=== PATIENT | female | born 1950 | race Caucasian/White ===

== ENCOUNTER 2019-07-04 22:40 | Observation (INO) ==
[2019-07-05] MEDS ORDERED: ORPHENADRINE 60 MG/2 ML VIAL IV STA (00:39)
[2019-07-05] MEDS ORDERED: hydrALAZINE 20 MG/1 ML VIAL IV STA (00:40)
[2019-07-05 01:08] LABS: Basophils % 0.2 % (0.0-0.8); Eosinophils # 0.3 10*3/uL (0.0-0.87); Eosinophils % 5.1 % (0.00-10.9); Hematocrit 34.5 VOL% (35.7-47.0); Hemoglobin 10.9 GM/DL (12.0-16.0); Immature Granulocytes % 0.3 %; Immature Granulocytes Absolute 0.02 #; Lymphocytes # 2.3 10*3/uL (1.4-4.0); Lymphocytes % 34.8 % (21.3-54.2); Mean Corpuscular HGB Conc 31.6 GM/DL (32-36); Mean Corpuscular Volume 94.5 FL (87-102); Mean Platelet Volume 10.8 FL (9.6-12.0); Monocytes % 11.1 % (1.7-12.7); Neutrophils % 48.5 % (38.7-73.9); Platelet Count 168 T/CUMM (130-400); Red Blood Count 3.65 MC/CUMM (3.8-5.5); Red Cell Distribution Width 13.7 % (9.3-17.3); White Blood Count 6.5 T/CUMM (4-12)
[2019-07-05 01:09] LABS: INR 0.9; PT Patient Result 10.2 SECS (9.6-12.2); Partial Thromboplastin Time 27.3 SECS (20.8-36.0)
[2019-07-05 01:19] LABS: Albumin 3.8 G/DL (3.4-5.0); Bilirubin,Total 0.4 MG/DL (0.2-1.0); Calcium 10.2 MG/DL (8.5-10.1); Osmolality,Calculated 278.5 MOS/KG (273-304); Total Protein 7.6 G/DL (6.4-8.3)
[2019-07-05] MEDS ORDERED: ACETAMINOPHEN 500 MG TABLET PO STA (03:05)
[2019-07-05] MEDS ORDERED: ACETAMINOPHEN 500 MG TABLET ONE (03:06)
[2019-07-05 03:21] LABS: Apearance,Urine CLEAR (Clear); Bilirubin,Urine Negative (Negative); Blood, Urine Negative (Negative); Glucose,Urine (UA) Negative (Negative); Ketones,Urine Negative (Negative); Nitrite,Urine Negative (Negative); Protein,Urine Negative; RBC,Urine 1 /HPF (0-4); Squamous Epithelial Cell,Urine Occasional /HPF (0-10); Urine Color Colorless (Yellow); Urine Specific Gravity 1.014 (1.001-1.035); Urine Urobilinogen < 2.0 EU/DL (0.2-1.0); WBC,Urine <1 /HPF (0-6)
[2019-07-05] MEDS ORDERED: ONDANSETRON 4 MG/2 ML VIAL IV PRN (03:44)
[2019-07-05] MEDS ORDERED: NICOTINE 21 MG/24 HR PATCH TRANSDERM PRN (03:44)
[2019-07-05] MEDS ORDERED: hydrALAZINE 20 MG/1 ML VIAL IV PRN (04:49)
[2019-07-05] MEDS: IBUPROFEN 600 MG TABLET PO PRN ×3 (08:27→23:46)
[2019-07-05] MEDS: PANTOPRAZOLE 40 MG TABLET PO SCH (08:27)
[2019-07-05] MEDS: hydrALAZINE 25 MG TABLET PO SCH (08:28)
[2019-07-05] MEDS: MAGNESIUM HYDROXIDE SUSP 30 ML UDCUP PO PRN (17:30)
[2019-07-06] MEDS: IBUPROFEN 600 MG TABLET PO PRN ×3 (06:47→23:04)
[2019-07-06] MEDS: hydrALAZINE 25 MG TABLET PO SCH (09:07)
[2019-07-06] MEDS: PANTOPRAZOLE 40 MG TABLET PO SCH (09:07)
[2019-07-06] MEDS: tiZANidine 4 MG TABLET PO SCH ×2 (14:22→21:18)
[2019-07-06] MEDS: MORPHINE 4 MG/1 ML VIAL IV PRN (17:12)
[2019-07-07] MEDS: MORPHINE 4 MG/1 ML VIAL IV PRN ×2 (03:25→09:21)
[2019-07-07] MEDS: PANTOPRAZOLE 40 MG TABLET PO SCH (08:18)
[2019-07-07] MEDS: hydrALAZINE 25 MG TABLET PO SCH (08:18)
[2019-07-07] MEDS: tiZANidine 4 MG TABLET PO SCH ×2 (08:18→14:27)
[2019-07-07] MEDS: IBUPROFEN 600 MG TABLET PO PRN ×2 (08:18→14:30)
[2019-07-07] MEDS ORDERED: busPIRone 15 MG TABLET PO SCH (09:00)
[2019-07-07] MEDS: MAGNESIUM HYDROXIDE SUSP 30 ML UDCUP PO PRN (11:08)
[2019-07-07 13:09] VITALS: BP 119/66
[2019-07-07] MEDS ORDERED: AMITRIPTYLINE 25 MG TABLET PO SCH (21:00)
== END 2019-07-07 15:44 | disposition home or self-care (01) ==
LOC: N.ED 22:40 → N.EDINP 22:40 → SUATTDRO 07-05 03:44 → N.5E 07-05 04:30
PROVIDERS: ADMIT Internal Medicine; ATTEND Internal Medicine Cardiovascular Disease

== ENCOUNTER 2021-10-02 18:40 | Observation (INO) ==
[2021-10-02] MEDS ORDERED: ONDANSETRON 4 MG/2 ML VIAL IV ONE (21:46)
[2021-10-02] MEDS ORDERED: ORPHENADRINE 60 MG/2 ML VIAL IV STA (21:46)
[2021-10-02] MEDS ORDERED: MORPHINE 2 MG/1 ML SYRINGE IV STA (21:46)
[2021-10-02 22:16] LABS: Basophils % 0.1 % (0.0-0.8); Eosinophils # 0.1 10*3/uL (0.0-0.87); Eosinophils % 1.9 % (0.00-10.9); Hematocrit 35.8 VOL% (35.7-47.0); Hemoglobin 11.2 GM/DL (12.0-16.0); Immature Granulocytes % 0.3 %; Immature Granulocytes Absolute 0.02 #; Lymphocytes % 29.4 % (21.3-54.2); Mean Corpuscular HGB Conc 31.3 GM/DL (32-36); Mean Corpuscular Volume 87.3 FL (87-102); Mean Platelet Volume 10.2 FL (9.6-12.0); Monocytes # 0.6 10*3/uL (0.11-0.8); Monocytes % 8.5 % (1.7-12.7); Neutrophils % 59.8 % (38.7-73.9); Platelet Count 220 T/CUMM (130-400)
[2021-10-02 22:34] LABS: Bacteria,Urine Many /HPF (Few); Hyaline Casts,Urine 1 /LPF (0-3); Mucus,Urine Occasional /LPF (Occasional); RBC,Urine 4 /HPF (0-4); Squamous Epithelial Cell,Urine Occasional /HPF (0-10)
[2021-10-02 22:35] LABS: Bilirubin,Urine Negative (Negative); Blood, Urine Negative (Negative); Glucose,Urine (UA) Negative (Negative); Ketones,Urine 15 mg/dL (Negative); Nitrite,Urine Positive (Negative); Protein,Urine 30 mg/dL (Negative); Urine Appearance Slightly Cloudy (Clear); Urine Color Yellow (Yellow); Urine Specific Gravity > 1.030 (1.001-1.035); Urine Urobilinogen 0.2 eU/dL (<2.0); Urine pH 5.5 (4.5-8.0)
[2021-10-02 22:40] LABS: Alanine Aminotransferase 33 U/L (13-56); Albumin 3.7 G/DL (3.4-5.0); Alkaline Phosphatase 102 U/L (45-117); Aspartate Amino Transferase 30 U/L (0-37); Bilirubin,Total < 0.39 MG/DL (0.20-1.00); Blood Urea Nitrogen 25 MG/DL (7-18); Calcium 11.1 MG/DL (8.5-10.1); Carbon Dioxide 27 MMOL/L (21-32); Chloride 108 MMOL/L (98-107); Estimated Glom Filtration Rate 39 ML/MIN; Glucose 91 MG/DL (74-106); Osmolality,Calculated 282.4 MOS/KG (273-304); Potassium 4.1 MMOL/L (3.5-5.1); Sodium 140 MMOL/L (136-145); Total Protein 8.2 G/DL (6.4-8.2)
[2021-10-02] MEDS ORDERED: cefTRIAXone 1,000 MG in SODIUM CHLORIDE 0.9% 100 ML IV STA (22:43)
[2021-10-02] MEDS ORDERED: ASPIRIN 325 MG TABLET PO STA (23:21)
[2021-10-02] MEDS ORDERED: NITROGLYCERIN SL 0.4 MG TABLET SL STA (23:21)
[2021-10-03] MEDS: ONDANSETRON 4 MG/2 ML VIAL IV PRN ×2 (03:12→13:32)
[2021-10-03] MEDS: ACETAMINOPHEN 325 MG TABLET PO PRN (03:12)
[2021-10-03 03:16] LABS: Basophils % 0.2 % (0.0-0.8); Eosinophils # 0.2 10*3/uL (0.0-0.87); Eosinophils % 3.7 % (0.00-10.9); Hematocrit 34.4 VOL% (35.7-47.0); Hemoglobin 10.6 GM/DL (12.0-16.0); Immature Granulocytes % 0.2 %; Immature Granulocytes Absolute 0.01 #; Lymphocytes # 2.1 10*3/uL (1.4-4.0); Lymphocytes % 34.1 % (21.3-54.2); Mean Corpuscular HGB Conc 30.8 GM/DL (32-36); Mean Corpuscular Volume 87.5 FL (87-102); Mean Platelet Volume 10.7 FL (9.6-12.0); Monocytes # 0.6 10*3/uL (0.11-0.8); Monocytes % 9.7 % (1.7-12.7); Neutrophils % 52.1 % (38.7-73.9); Platelet Count 186 T/CUMM (130-400); Red Blood Count 3.93 MC/CUMM (3.8-5.5); White Blood Count 6.2 T/CUMM (4-12)
[2021-10-03 03:38] LABS: Alanine Aminotransferase 29 U/L (13-56); Albumin 3.4 G/DL (3.4-5.0); Alkaline Phosphatase 95 U/L (45-117); Aspartate Amino Transferase 29 U/L (0-37); Bilirubin,Total < 0.39 MG/DL (0.20-1.00); Blood Urea Nitrogen 27 MG/DL (7-18); Calcium 10.4 MG/DL (8.5-10.1); Carbon Dioxide 28 MMOL/L (21-32); Chloride 109 MMOL/L (98-107); Estimated Glom Filtration Rate 39 ML/MIN; Glucose 87 MG/DL (74-106); Osmolality,Calculated 284.3 MOS/KG (273-304); Potassium 4.2 MMOL/L (3.5-5.1); Sodium 141 MMOL/L (136-145)
[2021-10-03] MEDS: GABAPENTIN 300 MG CAPSULE PO SCH ×2 (09:07→20:56)
[2021-10-03] MEDS: ASPIRIN 325 MG TABLET PO SCH (09:07)
[2021-10-03] MEDS: busPIRone 10 MG TABLET PO SCH ×2 (09:08→20:56)
[2021-10-03] MEDS: traMADol 50 MG TABLET PO PRN ×2 (09:08→14:53)
[2021-10-03] MEDS: PANTOPRAZOLE 40 MG TABLET PO SCH (09:09)
[2021-10-03] MEDS: SODIUM CHLORIDE 0.9% 1,000 ML IV SCH ×2 (09:44→20:16)
[2021-10-03] MEDS: ALBUTEROL/IPRATROPIUM 3 ML NEB RESP TX SCH ×2 (13:00→20:11)
[2021-10-03] MEDS ORDERED: BISACODYL 5 MG TABLET PO ONE (16:11)
[2021-10-03] MEDS: FLUoxetine 20 MG CAPSULE PO SCH (20:56)
[2021-10-03] MEDS: cefTRIAXone 1,000 MG in SODIUM CHLORIDE 0.9% 100 ML IV SCH (21:01)
[2021-10-03] MEDS: MAGNESIUM HYDROXIDE SUSP 30 ML UDCUP PO SCH (21:49)
[2021-10-04] MEDS: ALBUTEROL/IPRATROPIUM 3 ML NEB RESP TX SCH ×4 (00:20→18:45)
[2021-10-04 05:52] LABS: Calcium 10.1 MG/DL (8.5-10.1); Osmolality,Calculated 285.1 MOS/KG (273-304); Potassium 4.6 MMOL/L (3.5-5.1)
[2021-10-04] MEDS: MAGNESIUM HYDROXIDE SUSP 30 ML UDCUP PO SCH ×3 (06:03→23:54)
[2021-10-04] MEDS: SODIUM CHLORIDE 0.9% 1,000 ML IV SCH ×3 (06:03→20:36)
[2021-10-04] MEDS: ASPIRIN 325 MG TABLET PO SCH (08:27)
[2021-10-04] MEDS: BISACODYL 5 MG TABLET PO SCH ×2 (08:27→20:35)
[2021-10-04] MEDS: PANTOPRAZOLE 40 MG TABLET PO SCH (08:28)
[2021-10-04] MEDS: GABAPENTIN 300 MG CAPSULE PO SCH ×2 (08:28→20:35)
[2021-10-04] MEDS: busPIRone 10 MG TABLET PO SCH ×3 (08:28→20:36)
[2021-10-04] MEDS: traMADol 50 MG TABLET PO PRN ×2 (08:28→17:37)
[2021-10-04] MEDS: cloNIDine 0.1 MG TABLET PO PRN (10:52)
[2021-10-04] MEDS: ONDANSETRON 4 MG/2 ML VIAL IV PRN (13:21)
[2021-10-04] MEDS: FLUoxetine 20 MG CAPSULE PO SCH (20:36)
[2021-10-04] MEDS: ACETAMINOPHEN 325 MG TABLET PO PRN (20:36)
[2021-10-04] MEDS: cefTRIAXone 1,000 MG in SODIUM CHLORIDE 0.9% 100 ML IV SCH (21:31)
[2021-10-05] MEDS: ALBUTEROL/IPRATROPIUM 3 ML NEB RESP TX SCH ×4 (00:16→18:45)
[2021-10-05] MEDS: ONDANSETRON 4 MG/2 ML VIAL IV PRN ×3 (00:19→20:31)
[2021-10-05] MEDS: traMADol 50 MG TABLET PO PRN ×3 (04:21→16:30)
[2021-10-05 05:25] LABS: Basophils % 0.2 % (0.0-0.8); Eosinophils # 0.3 10*3/uL (0.0-0.87); Eosinophils % 5.3 % (0.00-10.9); Hematocrit 31.9 VOL% (35.7-47.0); Hemoglobin 9.6 GM/DL (12.0-16.0); Immature Granulocytes % 0.2 %; Immature Granulocytes Absolute 0.01 #; Lymphocytes # 1.6 10*3/uL (1.4-4.0); Lymphocytes % 27.6 % (21.3-54.2); Mean Corpuscular HGB Conc 30.1 GM/DL (32-36); Mean Corpuscular Volume 90.9 FL (87-102); Monocytes # 0.6 10*3/uL (0.11-0.8); Monocytes % 10.5 % (1.7-12.7); Neutrophils % 56.2 % (38.7-73.9); Platelet Count 171 T/CUMM (130-400); Red Blood Count 3.51 MC/CUMM (3.8-5.5); Red Cell Distribution Width 15.2 % (9.3-17.3); White Blood Count 5.8 T/CUMM (4-12)
[2021-10-05] MEDS: MAGNESIUM HYDROXIDE SUSP 30 ML UDCUP PO SCH ×3 (05:30→22:36)
[2021-10-05 05:41] LABS: Osmolality,Calculated 282.3 MOS/KG (273-304); Potassium 4.5 MMOL/L (3.5-5.1)
[2021-10-05] MEDS: SODIUM CHLORIDE 0.9% 1,000 ML IV SCH ×3 (08:35→20:00)
[2021-10-05] MEDS: BISACODYL 5 MG TABLET PO SCH ×2 (09:28→20:27)
[2021-10-05] MEDS: GABAPENTIN 300 MG CAPSULE PO SCH ×2 (09:28→20:27)
[2021-10-05] MEDS: busPIRone 10 MG TABLET PO SCH ×3 (09:28→20:27)
[2021-10-05] MEDS: ASPIRIN 325 MG TABLET PO SCH (09:28)
[2021-10-05] MEDS: PANTOPRAZOLE 40 MG TABLET PO SCH (09:28)
[2021-10-05] MEDS: cefTRIAXone 1,000 MG in SODIUM CHLORIDE 0.9% 100 ML IV SCH (20:23)
[2021-10-05] MEDS: FLUoxetine 20 MG CAPSULE PO SCH (20:31)
[2021-10-06] MEDS: ONDANSETRON 4 MG/2 ML VIAL IV PRN ×3 (01:28→20:31)
[2021-10-06] MEDS: ALBUTEROL/IPRATROPIUM 3 ML NEB RESP TX SCH ×4 (01:40→19:02)
[2021-10-06] MEDS: traMADol 50 MG TABLET PO PRN ×3 (04:41→14:28)
[2021-10-06] MEDS: MAGNESIUM HYDROXIDE SUSP 30 ML UDCUP PO SCH ×3 (06:47→21:07)
[2021-10-06] MEDS: SODIUM CHLORIDE 0.9% 1,000 ML IV SCH ×2 (07:35→17:42)
[2021-10-06] MEDS: ASPIRIN 325 MG TABLET PO SCH (09:19)
[2021-10-06] MEDS: GABAPENTIN 300 MG CAPSULE PO SCH ×2 (09:19→20:32)
[2021-10-06] MEDS: PANTOPRAZOLE 40 MG TABLET PO SCH (09:19)
[2021-10-06] MEDS: BISACODYL 5 MG TABLET PO SCH ×2 (09:19→20:31)
[2021-10-06] MEDS: busPIRone 10 MG TABLET PO SCH ×3 (09:19→20:32)
[2021-10-06] MEDS: carvediloL 3.125 MG TABLET PO SCH ×2 (10:40→20:32)
[2021-10-06] MEDS: FLUoxetine 20 MG CAPSULE PO SCH (20:32)
[2021-10-06] MEDS: cefTRIAXone 1,000 MG in SODIUM CHLORIDE 0.9% 100 ML IV SCH (20:32)
[2021-10-07] MEDS: ALBUTEROL/IPRATROPIUM 3 ML NEB RESP TX SCH ×4 (01:05→19:20)
[2021-10-07] MEDS: SODIUM CHLORIDE 0.9% 1,000 ML IV SCH ×2 (03:46→13:59)
[2021-10-07] MEDS: traMADol 50 MG TABLET PO PRN (03:51)
[2021-10-07 04:33] LABS: Basophils % 0.2 % (0.0-0.8); Eosinophils # 0.4 10*3/uL (0.0-0.87); Eosinophils % 5.8 % (0.00-10.9); Hematocrit 31.4 VOL% (35.7-47.0); Hemoglobin 9.6 GM/DL (12.0-16.0); Immature Granulocytes % 0.3 %; Immature Granulocytes Absolute 0.02 #; Lymphocytes # 1.5 10*3/uL (1.4-4.0); Lymphocytes % 24.8 % (21.3-54.2); Mean Corpuscular HGB Conc 30.6 GM/DL (32-36); Mean Platelet Volume 10.9 FL (9.6-12.0); Monocytes # 0.6 10*3/uL (0.11-0.8); Neutrophils % 59.9 % (38.7-73.9); Platelet Count 174 T/CUMM (130-400); Red Blood Count 3.53 MC/CUMM (3.8-5.5); White Blood Count 6.1 T/CUMM (4-12)
[2021-10-07] MEDS: MAGNESIUM HYDROXIDE SUSP 30 ML UDCUP PO SCH ×3 (05:59→22:25)
[2021-10-07] MEDS: carvediloL 6.25 MG TABLET PO SCH ×2 (09:06→20:43)
[2021-10-07] MEDS: GABAPENTIN 300 MG CAPSULE PO SCH ×2 (09:06→20:43)
[2021-10-07] MEDS: busPIRone 10 MG TABLET PO SCH ×3 (09:06→20:43)
[2021-10-07] MEDS: PANTOPRAZOLE 40 MG TABLET PO SCH (09:06)
[2021-10-07] MEDS: ASPIRIN 325 MG TABLET PO SCH (09:06)
[2021-10-07] MEDS: BISACODYL 5 MG TABLET PO SCH ×2 (09:09→20:44)
[2021-10-07] MEDS: tiZANidine 4 MG TABLET PO PRN ×2 (17:51→22:47)
[2021-10-07] MEDS: FLUoxetine 20 MG CAPSULE PO SCH (20:43)
[2021-10-07] MEDS: cefTRIAXone 1,000 MG in SODIUM CHLORIDE 0.9% 100 ML IV SCH (20:44)
[2021-10-08] MEDS: SODIUM CHLORIDE 0.9% 1,000 ML IV SCH ×3 (00:11→23:40)
[2021-10-08] MEDS: ALBUTEROL/IPRATROPIUM 3 ML NEB RESP TX SCH ×4 (01:39→19:47)
[2021-10-08] MEDS: traMADol 50 MG TABLET PO PRN ×3 (04:53→20:45)
[2021-10-08] MEDS: MAGNESIUM HYDROXIDE SUSP 30 ML UDCUP PO SCH ×3 (05:49→21:51)
[2021-10-08] MEDS: carvediloL 6.25 MG TABLET PO SCH (08:29)
[2021-10-08] MEDS: GABAPENTIN 300 MG CAPSULE PO SCH ×2 (08:29→20:46)
[2021-10-08] MEDS: PANTOPRAZOLE 40 MG TABLET PO SCH (08:29)
[2021-10-08] MEDS: BISACODYL 5 MG TABLET PO SCH ×2 (08:29→20:45)
[2021-10-08] MEDS: ASPIRIN 325 MG TABLET PO SCH (08:29)
[2021-10-08] MEDS: tiZANidine 4 MG TABLET PO PRN (08:29)
[2021-10-08] MEDS: busPIRone 10 MG TABLET PO SCH ×3 (08:29→20:45)
[2021-10-08] MEDS: ONDANSETRON 4 MG/2 ML VIAL IV PRN (16:26)
[2021-10-08] MEDS ORDERED: carvediloL 12.5 MG TABLET PO SCH (17:00)
[2021-10-08] MEDS: carvediloL 3.125 MG TABLET PO SCH (17:26)
[2021-10-08] MEDS: FLUoxetine 20 MG CAPSULE PO SCH (20:46)
[2021-10-08] MEDS: cefTRIAXone 1,000 MG in SODIUM CHLORIDE 0.9% 100 ML IV SCH (21:50)
[2021-10-09] MEDS: ALBUTEROL/IPRATROPIUM 3 ML NEB RESP TX SCH ×4 (00:07→19:00)
[2021-10-09] MEDS: cloNIDine 0.1 MG TABLET PO PRN (00:18)
[2021-10-09] MEDS: MAGNESIUM HYDROXIDE SUSP 30 ML UDCUP PO SCH ×3 (05:26→23:01)
[2021-10-09] MEDS: amLODIPine 5 MG TABLET PO SCH (10:23)
[2021-10-09] MEDS: busPIRone 10 MG TABLET PO SCH ×3 (10:23→23:01)
[2021-10-09] MEDS: GABAPENTIN 300 MG CAPSULE PO SCH ×2 (10:23→23:01)
[2021-10-09] MEDS: SODIUM CHLORIDE 0.9% 1,000 ML IV SCH ×2 (10:23→22:30)
[2021-10-09] MEDS: PANTOPRAZOLE 40 MG TABLET PO SCH (10:24)
[2021-10-09] MEDS: BISACODYL 5 MG TABLET PO SCH ×2 (10:24→23:01)
[2021-10-09] MEDS: carvediloL 3.125 MG TABLET PO SCH ×2 (10:24→17:13)
[2021-10-09] MEDS: ASPIRIN 325 MG TABLET PO SCH (10:24)
[2021-10-09] MEDS: FLUoxetine 20 MG CAPSULE PO SCH (23:01)
[2021-10-09] MEDS: cefTRIAXone 1,000 MG in SODIUM CHLORIDE 0.9% 100 ML IV SCH (23:01)
[2021-10-10] MEDS: traMADol 50 MG TABLET PO PRN ×2 (00:30→10:25)
[2021-10-10 04:52] LABS: Basophils % 0.2 % (0.0-0.8); Eosinophils # 0.3 10*3/uL (0.0-0.87); Eosinophils % 6.2 % (0.00-10.9); Hematocrit 29.6 VOL% (35.7-47.0); Immature Granulocytes % 0.4 %; Immature Granulocytes Absolute 0.02 #; Lymphocytes # 1.7 10*3/uL (1.4-4.0); Lymphocytes % 33.9 % (21.3-54.2); Mean Corpuscular HGB Conc 30.4 GM/DL (32-36); Mean Platelet Volume 11.8 FL (9.6-12.0); Monocytes # 0.6 10*3/uL (0.11-0.8); Monocytes % 10.9 % (1.7-12.7); Neutrophils % 48.4 % (38.7-73.9); Platelet Count 160 T/CUMM (130-400); Red Blood Count 3.29 MC/CUMM (3.8-5.5); White Blood Count 5.1 T/CUMM (4-12)
[2021-10-10 05:13] LABS: Calcium 9.6 MG/DL (8.5-10.1); Osmolality,Calculated 279.4 MOS/KG (273-304); Potassium 4.2 MMOL/L (3.5-5.1)
[2021-10-10] MEDS: MAGNESIUM HYDROXIDE SUSP 30 ML UDCUP PO SCH ×2 (05:21→15:19)
[2021-10-10] MEDS: ALBUTEROL/IPRATROPIUM 3 ML NEB RESP TX SCH ×4 (07:02→19:33)
[2021-10-10] MEDS: SODIUM CHLORIDE 0.9% 1,000 ML IV SCH ×3 (08:08→21:41)
[2021-10-10] MEDS: ASPIRIN 325 MG TABLET PO SCH (10:20)
[2021-10-10] MEDS: PANTOPRAZOLE 40 MG TABLET PO SCH (10:20)
[2021-10-10] MEDS: BISACODYL 5 MG TABLET PO SCH (10:20)
[2021-10-10] MEDS: GABAPENTIN 300 MG CAPSULE PO SCH ×2 (10:20→21:42)
[2021-10-10] MEDS: busPIRone 10 MG TABLET PO SCH ×3 (10:20→21:42)
[2021-10-10] MEDS: amLODIPine 5 MG TABLET PO SCH (10:21)
[2021-10-10] MEDS: carvediloL 3.125 MG TABLET PO SCH ×2 (10:21→17:52)
[2021-10-10] MEDS: ONDANSETRON 4 MG/2 ML VIAL IV PRN (11:12)
[2021-10-10] MEDS: cefTRIAXone 1,000 MG in SODIUM CHLORIDE 0.9% 100 ML IV SCH (21:40)
[2021-10-10] MEDS: FLUoxetine 20 MG CAPSULE PO SCH (21:42)
[2021-10-11] MEDS: ALBUTEROL/IPRATROPIUM 3 ML NEB RESP TX SCH ×4 (00:25→20:00)
[2021-10-11] MEDS: ONDANSETRON 4 MG/2 ML VIAL IV PRN (02:47)
[2021-10-11 05:38] LABS: Eosinophils # 0.3 10*3/uL (0.0-0.87); Eosinophils % 6.6 % (0.00-10.9); Hematocrit 31.3 VOL% (35.7-47.0); Hemoglobin 9.1 GM/DL (12.0-16.0); Immature Granulocytes % 0.2 %; Immature Granulocytes Absolute 0.01 #; Lymphocytes # 1.4 10*3/uL (1.4-4.0); Lymphocytes % 34.9 % (21.3-54.2); Mean Corpuscular HGB Conc 29.1 GM/DL (32-36); Mean Corpuscular Volume 90.7 FL (87-102); Mean Platelet Volume 12.2 FL (9.6-12.0); Monocytes # 0.5 10*3/uL (0.11-0.8); Neutrophils % 46.3 % (38.7-73.9); Platelet Count 169 T/CUMM (130-400); Red Blood Count 3.45 MC/CUMM (3.8-5.5); Red Cell Distribution Width 15.1 % (9.3-17.3); White Blood Count 4.1 T/CUMM (4-12)
[2021-10-11 06:06] LABS: Calcium 10.1 MG/DL (8.5-10.1); Osmolality,Calculated 280.3 MOS/KG (273-304); Potassium 3.8 MMOL/L (3.5-5.1)
[2021-10-11] MEDS: SODIUM CHLORIDE 0.9% 1,000 ML IV SCH (09:46)
[2021-10-11] MEDS: ASPIRIN 325 MG TABLET PO SCH (09:47)
[2021-10-11] MEDS: cloNIDine 0.1 MG TABLET PO PRN (09:47)
[2021-10-11] MEDS: PANTOPRAZOLE 40 MG TABLET PO SCH (09:47)
[2021-10-11] MEDS: busPIRone 10 MG TABLET PO SCH ×3 (09:47→20:59)
[2021-10-11] MEDS: GABAPENTIN 300 MG CAPSULE PO SCH ×2 (09:47→20:59)
[2021-10-11] MEDS: carvediloL 3.125 MG TABLET PO SCH ×2 (09:48→16:48)
[2021-10-11] MEDS: amLODIPine 5 MG TABLET PO SCH (09:48)
[2021-10-11] MEDS: FLUoxetine 20 MG CAPSULE PO SCH (20:59)
[2021-10-12] MEDS: ALBUTEROL/IPRATROPIUM 3 ML NEB RESP TX SCH ×4 (00:37→13:00)
[2021-10-12] MEDS: busPIRone 10 MG TABLET PO SCH ×3 (09:07→21:28)
[2021-10-12] MEDS: GABAPENTIN 300 MG CAPSULE PO SCH ×2 (09:07→21:28)
[2021-10-12] MEDS: amLODIPine 5 MG TABLET PO SCH (09:07)
[2021-10-12] MEDS: SODIUM CHLORIDE 0.9% 1,000 ML IV SCH ×2 (09:08→12:11)
[2021-10-12] MEDS: PANTOPRAZOLE 40 MG TABLET PO SCH (09:08)
[2021-10-12] MEDS: carvediloL 3.125 MG TABLET PO SCH ×2 (09:08→17:19)
[2021-10-12] MEDS: ASPIRIN 325 MG TABLET PO SCH (09:08)
[2021-10-12 14:37] LABS: Barbiturates Screen,Urine Negative (Negative); Benzodiazepines Screen,Urine Negative (Negative); Cannabinoid Screen,Urine Negative (Negative); Opiate Screen,Urine Negative (Negative); Phencyclidine Screen,Urine Negative (Negative)
[2021-10-12] MEDS: FLUoxetine 20 MG CAPSULE PO SCH (21:27)
[2021-10-13] MEDS: ALBUTEROL/IPRATROPIUM 3 ML NEB RESP TX SCH ×4 (00:10→19:11)
[2021-10-13] MEDS: GABAPENTIN 300 MG CAPSULE PO SCH ×2 (09:21→20:29)
[2021-10-13] MEDS: PANTOPRAZOLE 40 MG TABLET PO SCH (09:21)
[2021-10-13] MEDS: ASPIRIN 325 MG TABLET PO SCH (09:21)
[2021-10-13] MEDS: carvediloL 3.125 MG TABLET PO SCH ×2 (09:21→17:52)
[2021-10-13] MEDS: busPIRone 10 MG TABLET PO SCH ×3 (09:22→20:29)
[2021-10-13] MEDS: amLODIPine 10 MG TABLET PO SCH (09:22)
[2021-10-13] MEDS: ACETAMINOPHEN 325 MG TABLET PO PRN (09:22)
[2021-10-13] MEDS: cloNIDine 0.1 MG TABLET PO PRN ×2 (11:16→15:54)
[2021-10-13] MEDS: SODIUM CHLORIDE 0.9% 1,000 ML IV SCH ×2 (16:41→22:00)
[2021-10-13] MEDS: FLUoxetine 20 MG CAPSULE PO SCH (20:29)
[2021-10-13] MEDS ORDERED: DOCUSATE SODIUM 100 MG CAPSULE PO SCH (21:00)
[2021-10-14] MEDS: ALBUTEROL/IPRATROPIUM 3 ML NEB RESP TX SCH ×2 (00:26→07:05)
[2021-10-14] MEDS: GABAPENTIN 300 MG CAPSULE PO SCH (09:29)
[2021-10-14] MEDS: ASPIRIN 325 MG TABLET PO SCH (09:29)
[2021-10-14] MEDS: amLODIPine 10 MG TABLET PO SCH (09:30)
[2021-10-14] MEDS: busPIRone 10 MG TABLET PO SCH (09:30)
[2021-10-14] MEDS: carvediloL 3.125 MG TABLET PO SCH (09:30)
[2021-10-14] MEDS: PANTOPRAZOLE 40 MG TABLET PO SCH (09:32)
[2021-10-14 14:18] VITALS: BP 146/76
== END 2021-10-14 12:08 ==
LOC: N.EDINP 18:40 → N.ED 18:40 → N.TELES 10-03 00:28
PROVIDERS: ADMIT Internal Medicine; ATTEND Internal Medicine

== ENCOUNTER 2022-02-17 21:00 | Observation (INO) ==
[2022-02-17 21:38] LABS: Basophils % 0.2 % (0.0-0.8); Eosinophils # 0.2 10*3/uL (0.0-0.87); Hematocrit 30.6 VOL% (35.7-47.0); Hemoglobin 9.4 GM/DL (12.0-16.0); Immature Granulocytes % 0.2 %; Immature Granulocytes Absolute 0.01 #; Lymphocytes # 1.5 10*3/uL (1.4-4.0); Lymphocytes % 32.5 % (21.3-54.2); Mean Corpuscular HGB Conc 30.7 GM/DL (32-36); Mean Corpuscular Volume 91.6 FL (87-102); Mean Platelet Volume 11.3 FL (9.6-12.0); Monocytes # 0.5 10*3/uL (0.11-0.8); Monocytes % 10.8 % (1.7-12.7); Neutrophils % 52.3 % (38.7-73.9); Platelet Count 128 T/CUMM (130-400); Red Blood Count 3.34 MC/CUMM (3.8-5.5); Red Cell Distribution Width 14.4 % (9.3-17.3); White Blood Count 4.5 T/CUMM (4-12)
[2022-02-17] MEDS ORDERED: MORPHINE 2 MG/1 ML SYRINGE IV STA (21:40)
[2022-02-17] MEDS ORDERED: NITROGLYCERIN 2% OINT 1 INCH/GM PACK TOP STA (21:40)
[2022-02-17] MEDS ORDERED: ALBUTEROL/IPRATROPIUM 3 ML NEB RESP TX STA (21:40)
[2022-02-17] MEDS ORDERED: methylPREDNISolone SOD SUC 125 MG/2 ML VIAL IV STA (21:40)
[2022-02-17] MEDS ORDERED: FUROSEMIDE 40 MG/4 ML VIAL IV STA (21:40)
[2022-02-17] MEDS ORDERED: ONDANSETRON 4 MG/2 ML VIAL IV STA (21:40)
[2022-02-17 21:53] LABS: Alanine Aminotransferase 28 U/L (13-56); Albumin 3.2 G/DL (3.4-5.0); Alkaline Phosphatase 81 U/L (45-117); Aspartate Amino Transferase 26 U/L (0-37); Bilirubin,Total < 0.39 MG/DL (0.20-1.00); Blood Urea Nitrogen 20 MG/DL (7-18); Calcium 10.7 MG/DL (8.5-10.1); Carbon Dioxide 33 MMOL/L (21-32); Chloride 107 MMOL/L (98-107); Glucose 67 MG/DL (74-106); Osmolality,Calculated 281.3 MOS/KG (273-304); Potassium 3.9 MMOL/L (3.5-5.1); Sodium 141 MMOL/L (136-145); Total Protein 7.3 G/DL (6.4-8.2)
[2022-02-17] MEDS ORDERED: DEXTROSE 50% 25 GM/50 ML VIAL IV STA (23:24)
[2022-02-17] MEDS ORDERED: DEXTROSE 50% 25 GM/50 ML SYRINGE IV STA (23:28)
[2022-02-18] MEDS ORDERED: ENOXAPARIN 40 MG/0.4 ML SYRINGE SUBCUT STA (01:18)
[2022-02-18 02:03] LABS: Barbiturates Screen,Urine Negative (Negative); Benzodiazepines Screen,Urine Positive (Negative); Cannabinoid Screen,Urine Negative (Negative); Opiate Screen,Urine Negative (Negative); Phencyclidine Screen,Urine Negative (Negative)
[2022-02-18] MEDS ORDERED: ONDANSETRON 4 MG/2 ML VIAL IV PRN (03:45)
[2022-02-18] MEDS: SODIUM CHLORIDE 0.9% 1,000 ML IV SCH (04:08)
[2022-02-18 05:30] LABS: Eosinophils % 0.6 % (0.00-10.9); Hematocrit 33.8 VOL% (35.7-47.0); Hemoglobin 10.5 GM/DL (12.0-16.0); Immature Granulocytes % 0.3 %; Immature Granulocytes Absolute 0.01 #; Lymphocytes # 0.5 10*3/uL (1.4-4.0); Lymphocytes % 13.2 % (21.3-54.2); Mean Corpuscular HGB Conc 31.1 GM/DL (32-36); Mean Corpuscular Volume 92.1 FL (87-102); Mean Platelet Volume 11.8 FL (9.6-12.0); Monocytes % 0.6 % (1.7-12.7); Neutrophils % 85.3 % (38.7-73.9); Platelet Count 138 T/CUMM (130-400); Red Blood Count 3.67 MC/CUMM (3.8-5.5); Red Cell Distribution Width 14.5 % (9.3-17.3); White Blood Count 3.6 T/CUMM (4-12)
[2022-02-18 05:55] LABS: Alanine Aminotransferase 31 U/L (13-56); Albumin 3.4 G/DL (3.4-5.0); Alkaline Phosphatase 88 U/L (45-117); Aspartate Amino Transferase 27 U/L (0-37); Bilirubin,Total < 0.39 MG/DL (0.20-1.00); Blood Urea Nitrogen 25 MG/DL (7-18); Calcium 10.3 MG/DL (8.5-10.1); Carbon Dioxide 29 MMOL/L (21-32); Chloride 102 MMOL/L (98-107); Cholesterol 187 MG/DL (50-200); Glucose 253 MG/DL (74-106); HDL Cholesterol 71 MG/DL (40-60); Osmolality,Calculated 287.7 MOS/KG (273-304); Potassium 4.1 MMOL/L (3.5-5.1); Risk Ratio 2.63; Sodium 138 MMOL/L (136-145); Total Protein 7.6 G/DL (6.4-8.2); Triglycerides 52 MG/DL (2-150); VLDL Cholesterol 10.4 MG/DL
[2022-02-18] MEDS: ACETAMINOPHEN 325 MG TABLET PO PRN (09:25)
[2022-02-18] MEDS: DOCUSATE SODIUM 100 MG CAPSULE PO SCH ×2 (09:27→21:45)
[2022-02-18] MEDS: PANTOPRAZOLE 40 MG VIAL IV SCH (09:28)
[2022-02-18] MEDS ORDERED: tiZANidine 4 MG TABLET PO PRN (14:43)
[2022-02-18] MEDS ORDERED: ENOXAPARIN 40 MG/0.4 ML SYRINGE SUBCUT SCH (15:00)
[2022-02-18] MEDS: ALBUTEROL/IPRATROPIUM 3 ML NEB RESP TX SCH (19:08)
[2022-02-18] MEDS: busPIRone 10 MG TABLET PO SCH (21:45)
[2022-02-18] MEDS: GABAPENTIN 300 MG CAPSULE PO SCH (21:46)
[2022-02-18] MEDS: ATORVASTATIN 40 MG TABLET PO SCH (21:46)
[2022-02-18] MEDS: NON-FORMULARY MEDICATION (Buprenorphine-Naloxone 8-2 mg film) BUCCAL SCH (21:46)
[2022-02-19] MEDS: ALBUTEROL/IPRATROPIUM 3 ML NEB RESP TX SCH ×3 (00:28→19:20)
[2022-02-19] MEDS: SODIUM CHLORIDE 0.9% 1,000 ML IV SCH (04:01)
[2022-02-19] MEDS: DOCUSATE SODIUM 100 MG CAPSULE PO SCH ×2 (08:54→20:55)
[2022-02-19] MEDS: ISOSORBIDE MONONITRATE 30 MG TABLET PO SCH (08:54)
[2022-02-19] MEDS: ASPIRIN EC 81 MG TABLET PO SCH (08:54)
[2022-02-19] MEDS: FUROSEMIDE 20 MG TABLET PO SCH (08:54)
[2022-02-19] MEDS: busPIRone 10 MG TABLET PO SCH ×2 (08:54→20:55)
[2022-02-19] MEDS: NON-FORMULARY MEDICATION (Buprenorphine-Naloxone 8-2 mg film) BUCCAL SCH ×2 (08:56→21:43)
[2022-02-19] MEDS: PANTOPRAZOLE 40 MG VIAL IV SCH (08:56)
[2022-02-19] MEDS: FLUoxetine 20 MG CAPSULE PO SCH (15:34)
[2022-02-19] MEDS: ATORVASTATIN 40 MG TABLET PO SCH (20:54)
[2022-02-19] MEDS: ACETAMINOPHEN 325 MG TABLET PO PRN (20:54)
[2022-02-19] MEDS: GABAPENTIN 300 MG CAPSULE PO SCH (20:55)
[2022-02-20] MEDS: ALBUTEROL/IPRATROPIUM 3 ML NEB RESP TX SCH ×3 (00:57→06:55)
[2022-02-20] MEDS: SODIUM CHLORIDE 0.9% 1,000 ML IV SCH (03:04)
[2022-02-20] MEDS: ACETAMINOPHEN 325 MG TABLET PO PRN (04:22)
[2022-02-20] MEDS: ISOSORBIDE MONONITRATE 30 MG TABLET PO SCH (08:22)
[2022-02-20] MEDS: ASPIRIN EC 81 MG TABLET PO SCH (08:23)
[2022-02-20] MEDS: FUROSEMIDE 20 MG TABLET PO SCH (08:23)
[2022-02-20] MEDS: DOCUSATE SODIUM 100 MG CAPSULE PO SCH (08:23)
[2022-02-20] MEDS: FLUoxetine 20 MG CAPSULE PO SCH (08:32)
[2022-02-20] MEDS: busPIRone 10 MG TABLET PO SCH (08:32)
[2022-02-20 09:57] VITALS: BP 128/71
[2022-02-20] MEDS ORDERED: PANTOPRAZOLE 40 MG TABLET PO ONE (09:57)
[2022-02-20] MEDS: NON-FORMULARY MEDICATION (Buprenorphine-Naloxone 8-2 mg film) BUCCAL SCH (10:02)
== END 2022-02-20 11:20 | disposition home or self-care (01) ==
LOC: EDUNIT# → EDBD → N.EDINP 21:00 → N.ED 21:00 → N.EDINP 02-18 03:22 → N.TELEN 02-18 03:43
PROVIDERS: ADMIT Internal Medicine; ATTEND Internal Medicine

== ENCOUNTER 2022-06-25 15:42 | Observation (INO) ==
[2022-06-25 17:04] LABS: Eosinophils # 0.1 10*3/uL (0.0-0.87); Eosinophils % 2.4 % (0.00-10.9); Hematocrit 30.9 VOL% (35.7-47.0); Hemoglobin 10.1 GM/DL (12.0-16.0); Immature Granulocytes % 0.5 %; Immature Granulocytes Absolute 0.03 #; Lymphocytes # 0.6 10*3/uL (1.4-4.0); Lymphocytes % 9.4 % (21.3-54.2); Mean Corpuscular HGB Conc 32.7 GM/DL (32-36); Mean Corpuscular Volume 88.8 FL (87-102); Mean Platelet Volume 10.7 FL (9.6-12.0); Monocytes # 0.3 10*3/uL (0.11-0.8); Monocytes % 5.5 % (1.7-12.7); Neutrophils % 82.2 % (38.7-73.9); Platelet Count 176 T/CUMM (130-400); Red Blood Count 3.48 MC/CUMM (3.8-5.5); Red Cell Distribution Width 14.1 % (9.3-17.3); White Blood Count 5.8 T/CUMM (4-12)
[2022-06-25 17:16] LABS: Bilirubin,Total 0.4 MG/DL (0.20-1.00); Calcium 10.1 MG/DL (8.5-10.1); Osmolality,Calculated 279.5 MOS/KG (273-304); Potassium 3.7 MMOL/L (3.5-5.1); Total Protein 6.8 G/DL (6.4-8.2)
[2022-06-25] MEDS ORDERED: ONDANSETRON 4 MG/2 ML VIAL IV STA (19:50)
[2022-06-25] MEDS ORDERED: ENOXAPARIN 30 MG/0.3 ML SYRINGE SUBCUT STA (20:27)
[2022-06-25] MEDS ORDERED: ACETAMINOPHEN 325 MG TABLET PO ONE (20:53)
[2022-06-25] MEDS: SODIUM CHLORIDE 0.9% 1,000 ML IV SCH (23:48)
[2022-06-25] MEDS: DOCUSATE SODIUM 100 MG CAPSULE PO SCH (23:48)
[2022-06-26] MEDS: ONDANSETRON 4 MG/2 ML VIAL IV PRN ×2 (03:29→12:28)
[2022-06-26] MEDS ORDERED: PANTOPRAZOLE 40 MG TABLET PO SCH (09:00)
[2022-06-26] MEDS ORDERED: ENOXAPARIN 60 MG/0.6 ML SYRINGE SUBCUT SCH (09:00)
[2022-06-26] MEDS: SODIUM CHLORIDE 0.9% 1,000 ML IV SCH ×3 (09:13→22:48)
[2022-06-26] MEDS: DOCUSATE SODIUM 100 MG CAPSULE PO SCH ×2 (09:13→21:50)
[2022-06-26] MEDS ORDERED: MAGNESIUM SULF RIDER 2 GM/50 ML PREMIX IV ONE (11:30)
[2022-06-26] MEDS ORDERED: ONDANSETRON ODT 4 MG TABLET PO PRN (11:31)
[2022-06-26] MEDS ORDERED: ALBUTEROL/IPRATROPIUM 3 ML NEB RESP TX PRN (11:31)
[2022-06-26] MEDS ORDERED: LOPERAMIDE 2 MG CAPSULE PO PRN (11:31)
[2022-06-26] MEDS: hydrOXYzine HCL 25 MG TABLET PO PRN ×2 (12:18→21:51)
[2022-06-26] MEDS: GABAPENTIN 600 MG TABLET PO SCH ×2 (12:21→21:50)
[2022-06-26] MEDS: busPIRone 10 MG TABLET PO SCH ×2 (12:22→21:50)
[2022-06-26] MEDS: FLUoxetine 20 MG CAPSULE PO SCH (12:22)
[2022-06-26] MEDS: traMADol 50 MG TABLET PO SCH ×2 (16:01→21:50)
[2022-06-26] MEDS: tiZANidine 4 MG TABLET PO PRN (17:24)
[2022-06-26] MEDS: ALBUTEROL/IPRATROPIUM 3 ML NEB RESP TX SCH (19:40)
[2022-06-26] MEDS: APIXABAN 5 MG TABLET PO SCH (21:50)
[2022-06-26] MEDS: PANTOPRAZOLE 40 MG TABLET PO SCH (21:50)
[2022-06-27] MEDS: ALBUTEROL/IPRATROPIUM 3 ML NEB RESP TX SCH ×4 (00:28→19:15)
[2022-06-27] MEDS: hydrOXYzine HCL 25 MG TABLET PO PRN (02:37)
[2022-06-27 05:59] LABS: Calcium 9.6 MG/DL (8.5-10.1); Osmolality,Calculated 280.4 MOS/KG (273-304); Potassium 4.1 MMOL/L (3.5-5.1)
[2022-06-27] MEDS: GABAPENTIN 600 MG TABLET PO SCH ×2 (08:50→21:26)
[2022-06-27] MEDS: APIXABAN 5 MG TABLET PO SCH ×2 (08:50→21:25)
[2022-06-27] MEDS: PANTOPRAZOLE 40 MG TABLET PO SCH ×2 (08:50→21:26)
[2022-06-27] MEDS: DOCUSATE SODIUM 100 MG CAPSULE PO SCH ×2 (08:50→21:25)
[2022-06-27] MEDS: FLUoxetine 20 MG CAPSULE PO SCH (08:51)
[2022-06-27] MEDS: busPIRone 10 MG TABLET PO SCH ×2 (08:51→21:25)
[2022-06-27] MEDS: FERROUS SULFATE 325 MG TABLET PO SCH ×2 (08:51→21:25)
[2022-06-27] MEDS: traMADol 50 MG TABLET PO SCH ×3 (08:51→21:25)
[2022-06-27] MEDS: SODIUM CHLORIDE 0.9% 1,000 ML IV SCH ×3 (08:57→21:24)
[2022-06-27] MEDS: tiZANidine 4 MG TABLET PO PRN (16:31)
[2022-06-27] MEDS: ONDANSETRON 4 MG/2 ML VIAL IV PRN (23:21)
[2022-06-28] MEDS: ALBUTEROL/IPRATROPIUM 3 ML NEB RESP TX SCH ×4 (01:25→18:57)
[2022-06-28] MEDS: ACETAMINOPHEN 325 MG TABLET PO PRN (03:52)
[2022-06-28 05:10] LABS: Calcium 9.1 MG/DL (8.5-10.1); Osmolality,Calculated 282.1 MOS/KG (273-304); Potassium 3.9 MMOL/L (3.5-5.1)
[2022-06-28] MEDS: SODIUM CHLORIDE 0.9% 1,000 ML IV SCH ×2 (06:53→17:04)
[2022-06-28] MEDS: DOCUSATE SODIUM 100 MG CAPSULE PO SCH ×2 (09:28→20:49)
[2022-06-28] MEDS: APIXABAN 5 MG TABLET PO SCH ×2 (09:29→20:49)
[2022-06-28] MEDS: traMADol 50 MG TABLET PO SCH ×3 (09:29→20:48)
[2022-06-28] MEDS: PANTOPRAZOLE 40 MG TABLET PO SCH ×2 (09:29→20:49)
[2022-06-28] MEDS: GABAPENTIN 600 MG TABLET PO SCH ×2 (09:29→20:49)
[2022-06-28] MEDS: FERROUS SULFATE 325 MG TABLET PO SCH ×2 (09:29→20:49)
[2022-06-28] MEDS: FLUoxetine 20 MG CAPSULE PO SCH (09:29)
[2022-06-28] MEDS: busPIRone 10 MG TABLET PO SCH ×2 (09:29→20:48)
[2022-06-28] MEDS: MAGNESIUM CHLORIDE 64 MG TABLET PO SCH ×2 (09:36→20:49)
[2022-06-28] MEDS ORDERED: MAGNESIUM HYDROXIDE SUSP 30 ML UDCUP PO ONE (11:21)
[2022-06-28] MEDS ORDERED: SODIUM PHOSPHATE ENEMA 133 ML BOTTLE RECTAL ONE (11:21)
[2022-06-28 11:25] LABS: Eosinophils # 0.3 10*3/uL (0.0-0.87); Eosinophils % 6.8 % (0.00-10.9); Hematocrit 27.4 VOL% (35.7-47.0); Hemoglobin 8.6 GM/DL (12.0-16.0); Immature Granulocytes % 0.2 %; Immature Granulocytes Absolute 0.01 #; Lymphocytes # 1.1 10*3/uL (1.4-4.0); Lymphocytes % 24.9 % (21.3-54.2); Mean Corpuscular HGB Conc 31.4 GM/DL (32-36); Mean Corpuscular Volume 92.3 FL (87-102); Mean Platelet Volume 11.4 FL (9.6-12.0); Monocytes # 0.6 10*3/uL (0.11-0.8); Monocytes % 12.5 % (1.7-12.7); Neutrophils % 55.6 % (38.7-73.9); Platelet Count 163 T/CUMM (130-400); Red Blood Count 2.97 MC/CUMM (3.8-5.5); Red Cell Distribution Width 14.5 % (9.3-17.3); White Blood Count 4.4 T/CUMM (4-12)
[2022-06-28] MEDS: ONDANSETRON 4 MG/2 ML VIAL IV PRN (15:28)
[2022-06-28] MEDS: SUBOXONE PO SCH (22:34)
[2022-06-29] MEDS ORDERED: ALBUTEROL/IPRATROPIUM 3 ML NEB RESP TX ONE (00:08)
[2022-06-29] MEDS: ALBUTEROL/IPRATROPIUM 3 ML NEB RESP TX SCH ×4 (00:20→19:35)
[2022-06-29] MEDS: ACETAMINOPHEN 325 MG TABLET PO PRN (01:39)
[2022-06-29 06:03] LABS: Calcium 9.8 MG/DL (8.5-10.1); Osmolality,Calculated 284.1 MOS/KG (273-304); Potassium 3.8 MMOL/L (3.5-5.1)
[2022-06-29] MEDS: ONDANSETRON 4 MG/2 ML VIAL IV PRN (08:57)
[2022-06-29] MEDS: busPIRone 10 MG TABLET PO SCH ×2 (09:29→21:32)
[2022-06-29] MEDS: PANTOPRAZOLE 40 MG TABLET PO SCH ×2 (09:29→21:33)
[2022-06-29] MEDS: GABAPENTIN 600 MG TABLET PO SCH ×2 (09:29→21:32)
[2022-06-29] MEDS: FLUoxetine 20 MG CAPSULE PO SCH (09:30)
[2022-06-29] MEDS: MAGNESIUM CHLORIDE 64 MG TABLET PO SCH ×2 (09:30→21:32)
[2022-06-29] MEDS: DOCUSATE SODIUM 100 MG CAPSULE PO SCH ×2 (09:30→21:32)
[2022-06-29] MEDS: APIXABAN 5 MG TABLET PO SCH ×2 (09:30→21:33)
[2022-06-29] MEDS: FERROUS SULFATE 325 MG TABLET PO SCH ×2 (09:30→21:33)
[2022-06-29] MEDS: traMADol 50 MG TABLET PO SCH ×2 (09:34→14:37)
[2022-06-29] MEDS: tiZANidine 4 MG TABLET PO PRN (12:10)
[2022-06-29] MEDS ORDERED: LORATADINE 10 MG TABLET PO ONE (14:09)
[2022-06-29] MEDS: BISACODYL 5 MG TABLET PO SCH (14:37)
[2022-06-29] MEDS: SODIUM CHLORIDE 0.9% 1,000 ML IV SCH (15:08)
[2022-06-29] MEDS: hydrOXYzine HCL 25 MG TABLET PO PRN (21:33)
[2022-06-29] MEDS: AMITRIPTYLINE 25 MG TABLET PO SCH (21:33)
[2022-06-29] MEDS: SUBOXONE PO SCH (23:52)
[2022-06-30] MEDS: ALBUTEROL/IPRATROPIUM 3 ML NEB RESP TX SCH ×4 (00:16→20:08)
[2022-06-30 05:25] LABS: Basophils % 0.2 % (0.0-0.8); Eosinophils # 0.3 10*3/uL (0.0-0.87); Eosinophils % 6.6 % (0.00-10.9); Hematocrit 26.9 VOL% (35.7-47.0); Hemoglobin 8.3 GM/DL (12.0-16.0); Immature Granulocytes % 0.2 %; Immature Granulocytes Absolute 0.01 #; Lymphocytes # 1.2 10*3/uL (1.4-4.0); Lymphocytes % 25.2 % (21.3-54.2); Mean Corpuscular HGB Conc 30.9 GM/DL (32-36); Mean Corpuscular Volume 93.4 FL (87-102); Mean Platelet Volume 10.8 FL (9.6-12.0); Monocytes # 0.5 10*3/uL (0.11-0.8); Monocytes % 11.5 % (1.7-12.7); Neutrophils % 56.3 % (38.7-73.9); Platelet Count 167 T/CUMM (130-400); Red Blood Count 2.88 MC/CUMM (3.8-5.5); Red Cell Distribution Width 14.5 % (9.3-17.3); White Blood Count 4.7 T/CUMM (4-12)
[2022-06-30 06:03] LABS: Alanine Aminotransferase 15 U/L (13-56); Albumin 2.5 G/DL (3.4-5.0); Alkaline Phosphatase 55 U/L (45-117); Aspartate Amino Transferase 17 U/L (0-37); Bilirubin,Total < 0.39 MG/DL (0.20-1.00); Blood Urea Nitrogen 16 MG/DL (7-18); Carbon Dioxide 26 MMOL/L (21-32); Chloride 109 MMOL/L (98-107); Glucose 84 MG/DL (74-106); Osmolality,Calculated 274.7 MOS/KG (273-304); Sodium 138 MMOL/L (136-145)
[2022-06-30] MEDS: SODIUM CHLORIDE 0.9% 1,000 ML IV SCH (09:39)
[2022-06-30] MEDS: MAGNESIUM CHLORIDE 64 MG TABLET PO SCH ×2 (09:48→21:11)
[2022-06-30] MEDS: BISACODYL 5 MG TABLET PO SCH (09:48)
[2022-06-30] MEDS: DOCUSATE SODIUM 100 MG CAPSULE PO SCH ×2 (09:48→21:11)
[2022-06-30] MEDS: GABAPENTIN 600 MG TABLET PO SCH ×2 (09:49→21:11)
[2022-06-30] MEDS: LORATADINE 10 MG TABLET PO SCH (09:49)
[2022-06-30] MEDS: traMADol 50 MG TABLET PO PRN (09:49)
[2022-06-30] MEDS: tiZANidine 4 MG TABLET PO PRN (09:50)
[2022-06-30] MEDS: busPIRone 10 MG TABLET PO SCH ×2 (09:50→21:11)
[2022-06-30] MEDS: FLUoxetine 20 MG CAPSULE PO SCH (09:50)
[2022-06-30] MEDS: PANTOPRAZOLE 40 MG TABLET PO SCH ×2 (09:50→21:11)
[2022-06-30] MEDS: APIXABAN 5 MG TABLET PO SCH ×2 (09:50→21:11)
[2022-06-30] MEDS: FERROUS SULFATE 325 MG TABLET PO SCH ×2 (09:53→21:11)
[2022-06-30] MEDS: AMITRIPTYLINE 25 MG TABLET PO SCH (21:12)
[2022-06-30] MEDS: SUBOXONE PO SCH (21:13)
[2022-07-01] MEDS: ALBUTEROL/IPRATROPIUM 3 ML NEB RESP TX SCH ×4 (01:05→20:00)
[2022-07-01] MEDS: traMADol 50 MG TABLET PO PRN ×2 (01:14→13:52)
[2022-07-01] MEDS: SODIUM CHLORIDE 0.9% 1,000 ML IV SCH (05:08)
[2022-07-01] MEDS: LORATADINE 10 MG TABLET PO SCH (09:42)
[2022-07-01] MEDS: busPIRone 10 MG TABLET PO SCH ×2 (09:42→20:50)
[2022-07-01] MEDS: DOCUSATE SODIUM 100 MG CAPSULE PO SCH ×2 (09:42→20:49)
[2022-07-01] MEDS: APIXABAN 5 MG TABLET PO SCH ×2 (09:42→20:49)
[2022-07-01] MEDS: FERROUS SULFATE 325 MG TABLET PO SCH ×2 (09:42→20:50)
[2022-07-01] MEDS: BISACODYL 5 MG TABLET PO SCH (09:42)
[2022-07-01] MEDS: GABAPENTIN 600 MG TABLET PO SCH ×2 (09:43→20:50)
[2022-07-01] MEDS: PANTOPRAZOLE 40 MG TABLET PO SCH ×2 (09:43→20:50)
[2022-07-01] MEDS: MAGNESIUM CHLORIDE 64 MG TABLET PO SCH ×2 (09:44→20:50)
[2022-07-01] MEDS: FLUoxetine 20 MG CAPSULE PO SCH (09:50)
[2022-07-01 10:39] LABS: Eosinophils # 0.3 10*3/uL (0.0-0.87); Eosinophils % 6.1 % (0.00-10.9); Hematocrit 28.8 VOL% (35.7-47.0); Hemoglobin 9.1 GM/DL (12.0-16.0); Immature Granulocytes % 0.4 %; Immature Granulocytes Absolute 0.02 #; Lymphocytes % 19.4 % (21.3-54.2); Mean Corpuscular HGB Conc 31.6 GM/DL (32-36); Mean Corpuscular Volume 90.6 FL (87-102); Mean Platelet Volume 10.3 FL (9.6-12.0); Monocytes # 0.6 10*3/uL (0.11-0.8); Monocytes % 11.9 % (1.7-12.7); Neutrophils % 62.2 % (38.7-73.9); Platelet Count 190 T/CUMM (130-400); Red Blood Count 3.18 MC/CUMM (3.8-5.5); Red Cell Distribution Width 14.6 % (9.3-17.3); White Blood Count 5.4 T/CUMM (4-12)
[2022-07-01 10:54] LABS: Calcium 10.1 MG/DL (8.5-10.1); Osmolality,Calculated 279.4 MOS/KG (273-304); Potassium 3.8 MMOL/L (3.5-5.1)
[2022-07-01] MEDS: cloNIDine 0.1 MG TABLET PO SCH ×2 (13:52→20:49)
[2022-07-01] MEDS: ONDANSETRON 4 MG/2 ML VIAL IV PRN (19:10)
[2022-07-01] MEDS: AMITRIPTYLINE 25 MG TABLET PO SCH (20:50)
[2022-07-01] MEDS: SUBOXONE PO SCH (20:50)
[2022-07-01] MEDS: tiZANidine 4 MG TABLET PO PRN (21:03)
[2022-07-02] MEDS: ALBUTEROL/IPRATROPIUM 3 ML NEB RESP TX SCH ×4 (01:45→19:35)
[2022-07-02] MEDS: SODIUM CHLORIDE 0.9% 1,000 ML IV SCH ×2 (02:21→08:45)
[2022-07-02 05:57] LABS: Eosinophils # 0.4 10*3/uL (0.0-0.87); Eosinophils % 8.4 % (0.00-10.9); Hematocrit 28.1 VOL% (35.7-47.0); Hemoglobin 8.7 GM/DL (12.0-16.0); Immature Granulocytes % 0.2 %; Immature Granulocytes Absolute 0.01 #; Lymphocytes # 1.2 10*3/uL (1.4-4.0); Lymphocytes % 26.7 % (21.3-54.2); Mean Corpuscular Volume 92.4 FL (87-102); Mean Platelet Volume 10.8 FL (9.6-12.0); Monocytes # 0.5 10*3/uL (0.11-0.8); Monocytes % 12.6 % (1.7-12.7); Neutrophils % 52.1 % (38.7-73.9); Platelet Count 201 T/CUMM (130-400); Red Blood Count 3.04 MC/CUMM (3.8-5.5); Red Cell Distribution Width 14.6 % (9.3-17.3); White Blood Count 4.3 T/CUMM (4-12)
[2022-07-02 06:15] LABS: Calcium 9.9 MG/DL (8.5-10.1); Osmolality,Calculated 280.4 MOS/KG (273-304); Potassium 4.1 MMOL/L (3.5-5.1)
[2022-07-02] MEDS: ACETAMINOPHEN 325 MG TABLET PO PRN (07:24)
[2022-07-02] MEDS: PANTOPRAZOLE 40 MG TABLET PO SCH ×2 (08:41→20:42)
[2022-07-02] MEDS: DOCUSATE SODIUM 100 MG CAPSULE PO SCH ×2 (08:41→20:42)
[2022-07-02] MEDS: LORATADINE 10 MG TABLET PO SCH (08:41)
[2022-07-02] MEDS: FERROUS SULFATE 325 MG TABLET PO SCH ×2 (08:41→20:42)
[2022-07-02] MEDS: GABAPENTIN 600 MG TABLET PO SCH ×2 (08:41→20:42)
[2022-07-02] MEDS: MAGNESIUM CHLORIDE 64 MG TABLET PO SCH ×2 (08:41→20:42)
[2022-07-02] MEDS: cloNIDine 0.1 MG TABLET PO SCH ×2 (08:41→20:42)
[2022-07-02] MEDS: APIXABAN 5 MG TABLET PO SCH ×2 (08:41→20:42)
[2022-07-02] MEDS: BISACODYL 5 MG TABLET PO SCH (08:41)
[2022-07-02] MEDS: FLUoxetine 20 MG CAPSULE PO SCH (08:42)
[2022-07-02] MEDS: busPIRone 10 MG TABLET PO SCH ×2 (08:42→20:42)
[2022-07-02] MEDS: traMADol 50 MG TABLET PO PRN (13:27)
[2022-07-02] MEDS: tiZANidine 4 MG TABLET PO PRN (20:42)
[2022-07-02] MEDS: AMITRIPTYLINE 25 MG TABLET PO SCH (20:42)
[2022-07-02] MEDS: SUBOXONE PO SCH (22:57)
[2022-07-03] MEDS: ALBUTEROL/IPRATROPIUM 3 ML NEB RESP TX SCH ×2 (00:29→07:14)
[2022-07-03] MEDS: ACETAMINOPHEN 325 MG TABLET PO PRN (01:31)
[2022-07-03] MEDS: SODIUM CHLORIDE 0.9% 1,000 ML IV SCH (01:35)
[2022-07-03] MEDS: cloNIDine 0.1 MG TABLET PO SCH (09:36)
[2022-07-03] MEDS: FERROUS SULFATE 325 MG TABLET PO SCH (09:36)
[2022-07-03] MEDS: LORATADINE 10 MG TABLET PO SCH (09:36)
[2022-07-03] MEDS: GABAPENTIN 600 MG TABLET PO SCH (09:36)
[2022-07-03] MEDS: FLUoxetine 20 MG CAPSULE PO SCH (09:36)
[2022-07-03] MEDS: MAGNESIUM CHLORIDE 64 MG TABLET PO SCH (09:36)
[2022-07-03] MEDS: DOCUSATE SODIUM 100 MG CAPSULE PO SCH (09:36)
[2022-07-03] MEDS: busPIRone 10 MG TABLET PO SCH (09:36)
[2022-07-03] MEDS: BISACODYL 5 MG TABLET PO SCH (09:36)
[2022-07-03] MEDS: PANTOPRAZOLE 40 MG TABLET PO SCH (09:36)
[2022-07-03] MEDS: APIXABAN 5 MG TABLET PO SCH (09:37)
[2022-07-03 11:57] VITALS: BP 148/67
[2022-07-07] MEDS ORDERED: APIXABAN 2.5 MG TABLET PO SCH (09:00)
== END 2022-07-03 14:47 | disposition home health service (06) ==
LOC: N.ED 15:42 → INTOOBSV 20:29 → N.EDINP 20:29 → N.TELEN 23:02
PROVIDERS: ADMIT Internal Medicine; ATTEND Internal Medicine